=== PATIENT | male | born 1935 | race Caucasian/White ===

== ENCOUNTER 2022-03-27 14:00 | Inpatient (IN) | payer MEDICARE ==
[~2022-03-27] VITALS: Ht 172.7 cm; Wt 88.0 kg
[2022-03-27] MEDS ORDERED: BUPR-319 PO (14:14)
[2022-03-27] MEDS ORDERED: MIRT-93 PO (14:14)
[2022-03-27] MEDS ORDERED: CARV6.252 PO (14:14)
[2022-03-27] MEDS ORDERED: MONT10TA33 PO (14:14)
[2022-03-27] MEDS ORDERED: ATOR10TA PO (14:14)
--- NOTE | 2022-03-27 14:16 | NUR ---
PT IS IN ROOM #1B. DR PENDLETON EVALUATED THE PT.
[2022-03-27 15:31] LABS: HEMATOCRIT 45.9 % (36.7-47.1); MEAN CORPUSCULAR HEMOGLOBIN 28.1 uug (23.8-33.4); MEAN CORPUSCULAR VOLUME 85.6 fL (73.0-96.2); PLATELET COUNT (AUTO) 212 K/uL (152-348)
[2022-03-27 15:38] LABS: POTASSIUM 4.1 mmol/L (3.5-5.1)
[2022-03-27 15:52] LABS: BILIRUBIN,DIRECT 0.2 mg/dL (0.0-0.2); BILIRUBIN,TOTAL 0.6 mg/dL (0.2-1.0)
[2022-03-27] MEDS ORDERED: CARVEDILOL 6.25 MG TABLET PO SCH (18:30)
[2022-03-27] MEDS ORDERED: CARVEDILOL 6.25 MG TABLET ONE (18:34)
[2022-03-27 20:00] VITALS: BP 148/75
--- NOTE | 2022-03-27 20:06 | NUR ---
Report given to Karlos NGUYỄN Medsurg.
[2022-03-27] MEDS ORDERED: MAGNESIUM HYDROXIDE 30 ML LIQUID UDC PO PRN (20:45)
[2022-03-27] MEDS ORDERED: MORPHINE SULFATE 2 MG/1 ML DISP.SYRIN IV PRN (20:45)
[2022-03-27] MEDS ORDERED: ONDANSETRON 4 MG/2 ML VIAL IV PRN (20:45)
[2022-03-27] MEDS ORDERED: ACETAMINOPHEN 325 MG TABLET PO PRN (20:45)
[2022-03-27] MEDS ORDERED: MIRTAZAPINE 15 MG TABLET PO SCH (21:00)
[2022-03-27] MEDS ORDERED: ATORVASTATIN 10 MG TABLET PO SCH (21:00)
[2022-03-27] MEDS ORDERED: DOCUSATE SODIUM 100 MG CAPSULE PO SCH (21:00)
--- NOTE | 2022-03-27 22:00 | NUR ---
Admitted patient to Tele unit from ER via rney accompanied by ER nurse. Dx of SDH under the care of .Patient ALertx4.Denies pain or discomfort. On Ra. No s/s of distress noted. NSR on Tele .IV intact on right wrist.Skin intact.SAfety measures and fall precaution. Bed in lowest position. Call light with in reach.Will continue to monitor.
[2022-03-28] VITALS: BP 116/68
[2022-03-28] MEDS ORDERED: TEMAZEPAM 15 MG CAPSULE PO PRN
[2022-03-28 04:51] VITALS: BP 156/81
[2022-03-28 06:15] VITALS: BP 140/84
[2022-03-28 06:51] LABS: HEMATOCRIT 44.4 % (36.7-47.1); MEAN CORPUSCULAR HEMOGLOBIN 28.4 uug (23.8-33.4); MEAN CORPUSCULAR VOLUME 85.7 fL (73.0-96.2); PLATELET COUNT (AUTO) 178 K/uL (152-348)
[2022-03-28] MEDS ORDERED: PANTOPRAZOLE SODIUM 40 MG TABLET.DR PO SCH (07:00)
[2022-03-28 07:09] LABS: BILIRUBIN,TOTAL 0.7 mg/dL (0.2-1.0); PHOSPHOROUS 3.6 mg/dL (2.5-4.9); TOTAL PROTEIN, SERUM 6.4 g/dL (6.4-8.2)
[2022-03-28 07:11] LABS: THYROID STIMULATING HORMONE 2.261 mIU/mL (0.358-3.740)
--- NOTE | 2022-03-28 08:00 | NUR ---
RECEIVED PATIENT IN BED AWAKE ALERT AND VERBALLY RESPONSIVE DENIES PAIN OR DISCOMFORTS AT THIS TIME.TELE IS SR WITH NO ECTOPY CALL LIGHTS AND PERSONAL BELONGINGS ARE WITHIN EASY REACH AT THIS TIME WILL CONTINUE TO OBSERVE.
[2022-03-28] MEDS ORDERED: buPROPion XL 150 MG TAB.SR.24H PO SCH (09:00)
[2022-03-28] MEDS ORDERED: Medication Not On Formulary EA (Bupropion Hcl (Bupropion Xl) 1 TAB) PO SCH (09:00)
[2022-03-28] MEDS ORDERED: MONTELUKAST SODIUM 10 MG TABLET PO SCH (09:00)
[2022-03-28] MEDS ORDERED: CARVEDILOL 6.25 MG TABLET PO SCH (09:00)
[2022-03-28 11:55] VITALS: BP 119/67
--- NOTE | 2022-03-28 16:30 | NUR ---
NOTED THAT PATIENT HAS 10 BEATS OF V TACH CHECKED PATIENT HE IS ALERT AND ORIENTED V/S B/P 129/71 HR 77 DENIES DISCOMFORTS CALLED AND NOTIFIED DR EDWARD WITH NO NEW ORDERS AT THIS TIME.
[2022-03-28 17:11] VITALS: BP 133/73
--- NOTE | 2022-03-28 18:04 | NUR ---
DR EDWARD HERE SEEN PATIENT WITH ORDER TO DISCHARGE PATIENT HOME TODAY AND NOTED.PATIENT AWARE CALLED AND SPOKE WITH PATIENTS [facility] STATED SHE WILL BE HERE TO PICK PATIENT UP ABOUT 1999.
--- NOTE | 2022-03-28 18:39 | NUR ---
ENDORSED TO ONCOMING SHIFT THAT [facility] WILL BE COMING ABOUT 1999 .
--- NOTE | 2022-03-28 19:15 | NUR ---
received thorough report form AMRN using sbar method. I was informed that pt is set to be Dced home with (who is legally blind) and his caregiver. All Dc paperwork has been completed, IV Dced and site dressed, Pt dressed and ready to depart with all belongings accounted for. Nothing is pending for pt, He is only waiting to be picked up by spouse. Pt has been completely medically cleared, and if very augustine that injury was not more serious. Quick head to toe assessment was performed. Pt has good color, temp, and appearance, aaox3, VSS, PE WNL, equal and strong workers' compensation mediator strength bilaterally, good distal pulses, pt ambulatory with steady gait using walker. Lungs Ctab, SR no ectopy, RRR. Pt denies any pain, sob, n/v, dizziness or discomfort. pt is pacing infront of room patientlyh waiting for ride. Pt is in need of nothing, all needs met. no s/sx of distress noted.
--- NOTE | 2022-03-28 20:07 | NUR ---
Call came in that Pt's ride has arrived and is waiting for him in the lobby. Pt was assisted down stairs via WC by myself and the aid, walker was wheeled down with pt and placed in trunk of car. Pt has placed in car rearseat without difficulty or incident. Pt was very greatful of services rendered. No s/sx of distress present.
[2022-03-28 20:08] VITALS: BP 154/71
== END 2022-03-28 22:58 | disposition home or self-care (01) | DRG 86 ==
LOC: ER 14:02 → TELE3 20:12
PROVIDERS: ADMIT Nurse Practitioner Acute Care; ATTEND Nurse Practitioner Acute Care
DX: S06.5X0A Traumatic subdural hemorrhage without loss of consciousness, initial encounter (principal); E44.1 Mild protein-calorie malnutrition; E66.9 Obesity, unspecified; E78.5 Hyperlipidemia, unspecified; E88.09 Other disorders of plasma-protein metabolism, not elsewhere classified; F32.A Depression, unspecified; J45.909 Unspecified asthma, uncomplicated; Z87.891 Personal history of nicotine dependence; Z68.29 Body mass index [BMI] 29.0-29.9, adult; Z71.3 Dietary counseling and surveillance; Z20.822 Contact with and (suspected) exposure to COVID-19; Z86.73 Personal history of transient ischemic attack (TIA), and cerebral infarction without residual deficits; I10 Essential (primary) hypertension; J34.89 Other specified disorders of nose and nasal sinuses; R79.89 Other specified abnormal findings of blood chemistry; R40.2362 Coma scale, best motor response, obeys commands, at arrival to emergency department; R40.2142 Coma scale, eyes open, spontaneous, at arrival to emergency department; R40.2252 Coma scale, best verbal response, oriented, at arrival to emergency department; W19.XXXA Unspecified fall, initial encounter; Y93.9 Activity, unspecified; Y92.009 Unspecified place in unspecified non-institutional (private) residence as the place of occurrence of the external cause
CPT/HCPCS: 36415; 70450; 71045; 83735; 84100; 84443; 85025; 85730; 93005; A4663; G0378; J7040